=== PATIENT | female | born 1955 | race Caucasian/White ===

== ENCOUNTER → 2018-05-30 10:21 | Outpatient (CLI) | payer OTHER, SELFPAY ==
[2018-05-30 11:04] LABS: Hematocrit 41.5 % (36-46); Mean Corpuscular HGB Conc 33.7 % (30-36); Mean Corpuscular Hemoglobin 29.7 PG (26-34); Mean Corpuscular Volume 88.3 fL (80-100); Platelet Count 316 X10^3/uL (150-400); Red Cell Distribution Width 13.3 % (11.6-14.8); White Blood Cell Count 7.4 X10^3/uL (4.5-11.0)
[2018-05-30 11:05] LABS: Appearance Urine UA TURBID; Bilirubin Urine UA NEGATIVE (NEGATIVE); Color Urine UA YELLOW; Glucose Urine UA NEGATIVE (Negative); Ketones Urine UA TRACE (NEGATIVE); Leukocyte Esterase Urine UA NEGATIVE (NEGATIVE); Nitrite Urine UA NEGATIVE (Negative); Occult Blood Urine UA 1+ (Negative); Protein Urine UA NEGATIVE (Negative); Specific Gravity Urine UA 1.025 (1.000-1.035); Urobilinogen Urine UA 0.2 E.U./dL (0.2); pH Urine UA 5.5 (4.5-8.0)
[2018-05-30 11:36] LABS: Amorphous Sediment Urine 4+; Bacteria Urine Many (>30); RBC Urine 1-5/HPF (0-5/HPF); WBC Urine 0-1/HPF (0-5/HPF)
[2018-05-30 11:47] LABS: Alanine Aminotransferase 36 IU/L (9-52); Albumin 4.7 g/dL (3.5-5.0); Albumin Globulin Ratio 1.6 (1.0-2.8); Alkaline Phosphatase 67 U/L (38-126); Aspartate Aminotransferase 26 IU/L (14-36); BUN Creatinine Ratio 23.3 (6-22); Bilirubin Total 0.4 mg/dL (0.2-1.3); Blood Urea Nitrogen 21 mg/dL (7-17); Calcium 9.9 mg/dL (8.4-10.2); Carbon Dioxide 27 mmol/L (22-32); Chloride 102 mmol/L (98-107); Estimated Glomerular Filt Rate > 60.0 mL/min (>60); Globulin 2.9 g/dL (1.7-4.1); Glucose 99 mg/dL (80-110); HDL Cholesterol 56 mg/dL (40-60); HEMOLYSIS < 15 (0-50); Potassium 4.9 mmol/L (3.4-5.1); Sodium 139 mmol/L (137-145); Total Protein 7.6 g/dL (6.3-8.2); Triglycerides 292 mg/dL (35-150)
[2018-05-30 11:52] LABS: Cholesterol 347 mg/dL (140-199); LDL Cholesterol Calculated 233 mg/dL (<100)
== END ==
PROVIDERS: Visit Provider Nurse Practitioner Family
DX: Z00.00 Encounter for general adult medical examination without abnormal findings (principal)
CPT/HCPCS: 36415; 80053; 80061; 81001; 85027

== ENCOUNTER → 2018-09-05 09:49 | Outpatient (CLI) | payer OTHER, SELFPAY ==
[2018-09-05 11:31] LABS: Appearance Urine UA CLEAR; Bilirubin Urine UA NEGATIVE (NEGATIVE); Color Urine UA YELLOW; Glucose Urine UA NEGATIVE (Negative); Ketones Urine UA NEGATIVE (NEGATIVE); Leukocyte Esterase Urine UA NEGATIVE (NEGATIVE); Nitrite Urine UA NEGATIVE (Negative); Occult Blood Urine UA 1+ (Negative); Protein Urine UA NEGATIVE (Negative); Specific Gravity Urine UA 1.025 (1.000-1.035); Urobilinogen Urine UA 0.2 E.U./dL (0.2)
[2018-09-05 11:52] LABS: RBC Urine 5-10/HPF (0-5/HPF)
[2018-09-05 11:53] LABS: Bacteria Urine Few (2-10); Mucus Urine 1+ (Negative); WBC Urine 0-1/HPF (0-5/HPF)
[2018-09-07 17:04] LABS: Fecal Immunochemical Test NOT DETECTED (NOT DETECTED)
== END ==
PROVIDERS: PCP Nurse Practitioner Family; Visit Provider Nurse Practitioner Family
DX: R31.29 Other microscopic hematuria (principal); Z00.00 Encounter for general adult medical examination without abnormal findings
CPT/HCPCS: 81001; 82274

== ENCOUNTER → 2018-09-14 10:36 | Outpatient (CLI) | payer OTHER, SELFPAY ==
[2018-09-14 10:42] LABS: Bacteria Urine None Seen; WBC Urine None Seen (0-5/HPF)
[2018-09-14 11:13] LABS: Appearance Urine UA CLEAR; Bilirubin Urine UA NEGATIVE (NEGATIVE); Color Urine UA YELLOW; Glucose Urine UA NEGATIVE (Negative); Ketones Urine UA NEGATIVE (NEGATIVE); Leukocyte Esterase Urine UA NEGATIVE (NEGATIVE); Nitrite Urine UA NEGATIVE (Negative); Occult Blood Urine UA 1+ (Negative); Protein Urine UA NEGATIVE (Negative); Specific Gravity Urine UA 1.025 (1.000-1.035); Urobilinogen Urine UA 0.2 E.U./dL (0.2); pH Urine UA 5.5 (4.5-8.0)
[2018-09-14 11:31] LABS: Amorphous Sediment Urine 1+; RBC Urine 1-5/HPF (0-5/HPF)
[2018-09-14 12:21] LABS: HDL Cholesterol 61 mg/dL (40-60); Triglycerides 310 mg/dL (35-150)
[2018-09-14 12:51] LABS: Cholesterol 330 mg/dL (140-199); LDL Cholesterol Calculated 207 mg/dL (<100)
== END ==
PROVIDERS: PCP Nurse Practitioner Family; Visit Provider Nurse Practitioner Family
DX: R31.29 Other microscopic hematuria (principal); E78.9 Disorder of lipoprotein metabolism, unspecified; Z51.81 Encounter for therapeutic drug level monitoring
CPT/HCPCS: 36415; 80061; 81001

== ENCOUNTER → 2018-10-09 09:38 | Outpatient (CLI) | payer OTHER, SELFPAY ==
[2018-10-09 10:45] LABS: Cholesterol 237 mg/dL (140-199); HDL Cholesterol 46 mg/dL (40-60); LDL Cholesterol Calculated 138 mg/dL (<100); Triglycerides 265 mg/dL (35-150)
[2018-10-09 11:32] LABS: Estimated Glomerular Filt Rate > 60.0 mL/min (>60)
--- NOTE | 2018-10-09 12:43 | DI.CT.S_ITS ---
PROCEDURE: CT ABDOMEN PELVIS WO/W CON INDICATIONS: HEMATURIA TECHNIQUE: Optional 5 mm thick noncontrast images acquired from the diaphragm to the symphysis pubis. After the administration of intravenous contrast, 5 mm thick images acquired from the diaphragm to the symphysis pubis after a 10-minute delay. 2 mm thick coronal and sagittal reformats were then performed of the kidneys and ureters. For radiation dose reduction, the following was used: automated exposure control, adjustment of mA and/or kV according to patient size. COMPARISON: None. FINDINGS: Image quality: Excellent. Lung bases: Lung bases are clear. Heart size is normal. Small hiatal hernia. Urinary system: Both kidneys are normal in size, without hydronephrosis. Probable punctate nonobstructing calculus in the right kidney, (2/30). No perinephric fat stranding. There is normal bilateral renal enhancement. Renal calyces appear normal in morphology when filled with contrast. Opacified portions of both ureters demonstrate normal caliber without filling defect. Bladder wall thickness is normal. No calcified bladder stones. Other solid organs: Liver is normal in size and enhancement. Gallbladder is unremarkable. Biliary system is non dilated. Pancreas enhances normally. Spleen is normal in size and enhancement. No adrenal nodules. Peritoneum and bowel: Moderate sigmoid colon diverticulosis. Bowel loops demonstrate normal wall thickness and caliber. No free fluid or air. Nodes and vessels: No retroperitoneal or mesenteric adenopathy by size criteria. Aorta and inferior vena cava are normal in size. Abdominal wall: No ventral hernias. Pelvis: No pathologic free pelvic fluid. Small fat-containing right inguinal hernia. Bones: No suspicious bony lesions. No vertebral body compression fractures. IMPRESSION: 1. No renal or bladder mass demonstrated. No ureteral filling defect. 2. A punctate nonobstructing calculus in the right kidney. No hydronephrosis. Dictated by: Sushant Pollard M.D. on 10/09/2018 at 13:55 Approved by: Sushant Pollard M.D. on 10/09/2018 at 14:04
== END ==
PROVIDERS: PCP Nurse Practitioner Family; Visit Provider Student in an Organized Health Care Education/Training Program
DX: R31.9 Hematuria, unspecified (principal); N20.0 Calculus of kidney; E78.2 Mixed hyperlipidemia
CPT/HCPCS: 36415; 74178; 80061; 82565; Q9967

== ENCOUNTER → 2018-12-18 09:19 | Outpatient (CLI) | payer OTHER, SELFPAY ==
[2018-12-18 09:55] LABS: Hematocrit 41.9 % (36-46); Mean Corpuscular HGB Conc 33.5 % (30-36); Mean Corpuscular Volume 89.4 fL (80-100); Platelet Count 296 X10^3/uL (150-400); Red Blood Cell Count 4.68 X10^6/uL (4.0-5.2); Red Cell Distribution Width 12.6 % (11.6-14.8)
[2018-12-18 10:16] LABS: Alanine Aminotransferase 18 IU/L (9-52); Albumin 4.3 g/dL (3.5-5.0); Albumin Globulin Ratio 1.5 (1.0-2.8); Alkaline Phosphatase 70 U/L (38-126); Aspartate Aminotransferase 23 IU/L (14-36); Bilirubin Total 0.6 mg/dL (0.2-1.3); Blood Urea Nitrogen 24 mg/dL (7-17); Calcium 9.5 mg/dL (8.4-10.2); Carbon Dioxide 29 mmol/L (22-32); Chloride 104 mmol/L (98-107); Cholesterol 312 mg/dL (140-199); Estimated Glomerular Filt Rate > 60.0 mL/min (>60); Globulin 2.9 g/dL (1.7-4.1); Glucose 99 mg/dL (80-110); HDL Cholesterol 54 mg/dL (40-60); HEMOLYSIS < 15 (0-50); LDL Cholesterol Calculated 215 mg/dL (<100); Potassium 4.9 mmol/L (3.4-5.1); Sodium 140 mmol/L (137-145); Total Protein 7.2 g/dL (6.3-8.2); Triglycerides 217 mg/dL (35-150)
== END ==
PROVIDERS: PCP Nurse Practitioner Family; Visit Provider Nurse Practitioner Family
DX: Z00.00 Encounter for general adult medical examination without abnormal findings (principal); E78.2 Mixed hyperlipidemia
CPT/HCPCS: 36415; 80053; 80061; 85027

== ENCOUNTER → 2020-02-06 08:51 | Outpatient (CLI) | payer MEDICARE, SELFPAY ==
[2020-02-06 10:11] LABS: BUN Creatinine Ratio 23.5 (6-22); Blood Urea Nitrogen 23 mg/dL (7-17); Calcium 9.9 mg/dL (8.4-10.2); Carbon Dioxide 32 mmol/L (22-32); Chloride 105 mmol/L (98-107); Cholesterol 243 mg/dL (140-199); Estimated Glomerular Filt Rate 56.8 mL/min (>60); Glucose 104 mg/dL (80-110); HDL Cholesterol 49 mg/dL (40-60); HEMOLYSIS < 15 (0-50); LDL Cholesterol Calculated 148 mg/dL (<100); Potassium 4.2 mmol/L (3.4-5.1); Sodium 139 mmol/L (137-145); Triglycerides 231 mg/dL (35-150)
== END ==
PROVIDERS: PCP Nurse Practitioner Family; Referring Provider Nurse Practitioner Family; Visit Provider Nurse Practitioner Family
DX: R79.9 Abnormal finding of blood chemistry, unspecified (principal); E78.2 Mixed hyperlipidemia
CPT/HCPCS: 36415; 80048; 80061

== ENCOUNTER → 2020-02-12 11:30 | Outpatient (CLI) | payer MEDICARE, SELFPAY ==
--- NOTE | 2020-02-12 | DI.RAD.S_ITS ---
PROCEDURE: XR WRIST RT MIN 3V INDICATIONS: RT WRIST PAIN NO TRAUMA TECHNIQUE: 4 views of the wrist were acquired. COMPARISON: None. FINDINGS: Bones: No fractures or dislocations. No periosteal reaction. No osseous erosions. Mild degenerative change. No suspicious bony lesions. Scaphoid view: Intact. Soft tissues: No suspicious soft tissue calcifications. No radiopaque foreign body. IMPRESSION: Mild osteoarthritis of the wrist. Dictated by: Sushant Pollard M.D. on 02/12/2020 at 12:55 Approved by: Sushant Pollard M.D. on 02/12/2020 at 12:56
--- NOTE | 2020-02-12 11:34 | DI.RAD.S_ITS ---
PROCEDURE: XR KNEE LT 3V INDICATIONS: knee pain for 6 months, no injury TECHNIQUE: 3 views of the knee were acquired. COMPARISON: None. FINDINGS: Bones: No fractures or dislocations. No suspicious bony lesions. Mild osteophytosis most pronounced in the patellofemoral compartment. Soft tissues: No significant joint effusion. No suspicious soft tissue calcifications. IMPRESSION: Mild left knee osteoarthritis most pronounced in the patellofemoral compartment. Dictated by: Sushant Pollard M.D. on 02/12/2020 at 12:53 Approved by: Sushant Pollard M.D. on 02/12/2020 at 12:55
[2020-02-12 12:07] LABS: Hematocrit 39.8 % (36-46); Hemoglobin 13.4 g/dL (12.0-16.0); Mean Corpuscular HGB Conc 33.7 % (30-36); Mean Corpuscular Hemoglobin 30.2 PG (26-34); Mean Corpuscular Volume 89.5 fL (80-100); Platelet Count 271 X10^3/uL (150-400); Red Blood Cell Count 4.44 X10^6/uL (4.0-5.2); Red Cell Distribution Width 12.6 % (11.6-14.8); White Blood Cell Count 5.3 X10^3/uL (4.5-11.0)
[2020-02-12 12:27] LABS: Alanine Aminotransferase 24 IU/L (<35); Albumin 4.5 g/dL (3.5-5.0); Albumin Globulin Ratio 1.6 (1.0-2.8); Alkaline Phosphatase 70 U/L (38-126); Aspartate Aminotransferase 28 IU/L (14-36); BUN Creatinine Ratio 33.8 (6-22); Bilirubin Total 0.6 mg/dL (0.2-1.3); Blood Urea Nitrogen 24 mg/dL (7-17); C-Reactive Protein Quant 0.8 mg/dL (<1.0); Calcium 9.6 mg/dL (8.4-10.2); Carbon Dioxide 29 mmol/L (22-32); Chloride 104 mmol/L (98-107); Estimated Glomerular Filt Rate > 60.0 mL/min (>60); Globulin 2.9 g/dL (1.7-4.1); Glucose 100 mg/dL (80-110); HEMOLYSIS < 15 (0-50); Magnesium 2.4 mg/dL (1.6-2.3); Potassium 4.2 mmol/L (3.4-5.1); Sodium 138 mmol/L (137-145); Total Protein 7.4 g/dL (6.3-8.2)
[2020-02-12 12:29] LABS: Erythrocyte Sedimentation Rate 8 MM/HR (0-20)
[2020-02-12 13:35] LABS: TSH w/ Reflex to FT4 1.81 uIU/mL (0.47-4.68)
== END ==
PROVIDERS: PCP Nurse Practitioner Family; Referring Provider Nurse Practitioner Family; Visit Provider Nurse Practitioner Family
DX: M25.562 Pain in left knee (principal); R07.89 Other chest pain; R00.2 Palpitations; M25.50 Pain in unspecified joint; M25.531 Pain in right wrist
CPT/HCPCS: 36415; 73110; 73562; 80053; 83735; 84443; 85027; 85651; 86140

== ENCOUNTER → 2020-02-24 15:33 | Outpatient (CLI) | payer MEDICARE, SELFPAY ==
--- NOTE | 2020-03-21 11:57 | PM.CARDMON.1 ---
Adult Daycare Coordinator Report Referral & Results Date Patient Seen: 02/24/20 Requesting provider: Ant Crain Indication: Palpitations Duration of monitoring (days): 14 Diary information: There were 5 patient triggered events and 5 patient diary entry events. These events were all associated with (within 45 seconds) sinus rhythm, PVCs, and SVT as below. Data: Minimum heart rate identified was 54 beats per minute at 05:31 on 03/04/2020 Maximum sinus heart rate was 141 beats per minute at 09:48 on 03/06/2020 Maximum overall heart rate was 203 beats per minute at 15:12 on 03/08/2020 during a 7 beat run of SVT Less than 1% of identified beats or either ventricular supraventricular ectopic in origin Patient had 8 runs of SVT with the longest being 12.3 seconds at a rate of 121 beats per minute (which suggest atrial tachycardia rather than true SVT), and the fastest being the 7 beat run listed above Impression: Patient with essentially normal 14 day monitor and storage bin tender. Rare PACs and PVCs present. Difficult to correlate patient triggered events with specific dysrhythmias although could potentially be due to very brief runs of SVT as above. Clinical correlation suggested
== END ==
PROVIDERS: Family Provider Nurse Practitioner Family; PCP Nurse Practitioner Family; Referring Provider Nurse Practitioner Family; Visit Provider Nurse Practitioner Family
DX: R00.2 Palpitations (principal); R07.9 Chest pain, unspecified
CPT/HCPCS: 0296T; 0298T

== ENCOUNTER → 2020-03-09 13:34 | Outpatient (CLI) | payer MEDICARE, SELFPAY ==
--- NOTE | 2020-03-09 13:36 | DI.ECHO.S_ITS ---
[place] [facility]+ [facility] +---------+ : : [address] : : : : [id number] : : : : Phone: [phone] Echocardiogram Report + + :Name: DEE DEE CHAVEZ Study Date: 03/09/2020 Height: 64 in : :[facility] Weight: 120 lb : : Gender: Female BSA: 1.6 m2 : :: 1955 Age: 65 yrs BP: 119/71 mmHg: :Reason For Study: CHEST PAIN, PALPITATIONS : : Performed By: Rosita Tapia : :Referring: KYLIE KU : + + Interpretation Summary The left ventricle is normal in size and wall thickness. Left ventricular systolic function appears normal without focal wall motion abnormalities. The ejection fraction is estimated to be 55-60%. Diastolic parameters suggest probable normal left ventricular diastolic function and normal filling pressures. The right ventricle is normal in size and function. The right ventricular systolic pressure is estimated to be at least 17 mmHg based on an estimated right atrial pressure of 3 mm Hg. The left atrial size is normal. Right atrial size is normal. There is no significant valvular heart disease. The aortic root is normal size. Procedure: A two-dimensional transthoracic echocardiogram with color flow and Doppler was performed. The study quality was technically adequate. There is no prior echocardiogram noted for this patient. The patient was in sinus rhythm with heart rates between 60-68 bpm during the exam. Left Ventricle: The left ventricle is normal in size and wall thickness. Left ventricular systolic function appears normal without focal wall motion abnormalities. The ejection fraction is estimated to be 55-60%. Diastolic parameters suggest probable normal left ventricular diastolic function and normal filling pressures. Right Ventricle: The right ventricle is normal in size and function. Atria: The left atrial size is normal. Right atrial size is normal. There is no Doppler evidence for an interatrial shunt. Mitral Valve: The mitral valve is normal in structure and function. There is trace mitral regurgitation. Aortic Valve: The aortic valve is trileaflet. The aortic valve opens well. There is no aortic valve stenosis. No aortic regurgitation is present. Tricuspid Valve: The tricuspid valve is normal in structure and function. There is mild tricuspid regurgitation. The right ventricular systolic pressure is estimated to be at least 17 mmHg based on an estimated right atrial pressure of 3 mm Hg. Pulmonic Valve: The pulmonic valve leaflets are thin and pliable; valve motion is normal. There is no pulmonic valvular regurgitation. There is no significant valvular heart disease. Great Vessels: The aortic root is normal size. The dimensions of the ascending aorta are normal. The IVC is of normal diameter and collapses greater than 50% with a sniff. This suggests a low right atrial pressure of 3 mm Hg. Pericardium/ Pleura There is no pericardial effusion. There is no pleural effusion. MMode/2D Measurements & Calculations LVIDd: 4.3 cm LVOT diam: 2.0 cm LVIDs: 2.7 cm Ao root diam: 2.7 cm FS: 36.0 % asc Aorta Diam: 2.7 cm EPSS: 0.40 cm Ao Arch Diam (Prox Trans): 2.2 cm IVSd: 0.89 cm LVPWd: 0.81 cm LV gann. diameter/BSA (cm/m^2): 2.7 LV sys. diameter/BSA (cm/m^2): 1.7 LA A2 area: 14.7 cm2 RA long axis: 4.0 cm LA A4 area: 13.1 cm2 RA area: 12.4 cm2 LA length (vol): 3.8 cm RA vol: 33.2 ml LA vol: 42.9 ml RA : 21.1 ml/m2 LA vol index: 27.2 ml/m2 IVC diam: 0.91 cm RVD1 (basal): 3.3 cm TAPSE: 1.9 cm Doppler Measurements & Calculations Ao V2 max: 104.2 cm/sec LVOT Max Francisco J: 86.8 cm/sec Ao V2 mean: 71.6 cm/sec LV V1 max P.0 mmHg Ao max P.3 mmHg LV V1 VTI: 19.2 cm Ao mean P.3 mmHg SUE(I,D): 2.7 cm2 Ao V2 VTI: 21.8 cm SUE(V,D): 2.6 cm2 sev ratio: 0.88 SUE indexed to BSA (cm^2/m^2): 1.7 MV E max francisco j: 78.2 cm/sec TR max francisco j: 187.3 cm/sec MV A max francisco j: 71.5 cm/sec TR max P.2 mmHg MV E/A: 1.1 PA V2 max: 76.4 cm/sec Med Peak E' Francisco J: 7.2 cm/sec PA V2 mean: 47.9 cm/sec E/E' med: 10.8 PA mean P.1 mmHg Lat Peak E' Francisco J: 7.9 cm/sec PA pr(Accel): 5.4 mmHg E/E' lat: 9.9 E/e' average: 10.3 MV dec time: 0.22 sec SV(VIJAY): 59.2 ml Reading Physician:07:27 PM
== END ==
PROVIDERS: Family Provider Nurse Practitioner Family; PCP Nurse Practitioner Family; Referring Provider Nurse Practitioner Family; Visit Provider Nurse Practitioner Family
DX: I07.1 Rheumatic tricuspid insufficiency (principal); R07.89 Other chest pain; R00.2 Palpitations
CPT/HCPCS: 93306

== ENCOUNTER → 2022-01-18 14:17 | Outpatient (CLI) | payer OTHER, SELFPAY ==
--- NOTE | 2022-01-18 14:22 | DI.RAD.S_ITS ---
PROCEDURE: XR WRIST RT MIN 3V INDICATIONS: screen TECHNIQUE: 3 views of the wrist were acquired. COMPARISON: [facility], CR, XR WRIST RT MIN 3V, 02/12/2020, 10:59. FINDINGS: Bones: No fractures or dislocations. No suspicious bony lesions. Degenerative radiocarpal narrowing is present. Soft tissues: No suspicious soft tissue calcifications. IMPRESSION: No visualized acute fracture or dislocation. However, if clinical concern and/or pain persist, short interval imaging followup in 7-10 days is recommended, as occult injury cannot be definitively excluded. Dictated by: Maryan Wayne M.D. on 01/18/2022 at 16:53 Approved by: Maryan Wayne M.D. on 01/18/2022 at 16:53
== END ==
PROVIDERS: Family Provider Nurse Practitioner Family; PCP Internal Medicine; Referring Provider Nurse Practitioner Family; Visit Provider Nurse Practitioner Family
DX: M81.0 Age-related osteoporosis without current pathological fracture (principal); Z78.0 Asymptomatic menopausal state; M85.89 Other specified disorders of bone density and structure, multiple sites
CPT/HCPCS: 73110; 77080

== ENCOUNTER → 2023-09-25 14:46 | Outpatient (CLI) | payer MEDICARE, SELFPAY ==
--- NOTE | 2023-09-25 14:48 | DI.RAD.S_ITS ---
PROCEDURE: XR LUMBAR SPINE 2-3V INDICATIONS: Low back pain TECHNIQUE: Three views of the lumbar spine were acquired. COMPARISON: None. FINDINGS: Bones: Five [id number] vertebrae are present. Grade 1 retrolisthesis L2-3 and L3-4. Grade 1 anterolisthesis L4-5 and trace anterolisthesis L5-S1. Moderate disc height loss L2-3 and L4-5. Mild disc height loss at other levels. There is prominent facet arthropathy L5-S1. No vertebral body compression fractures. No suspicious bony lesions. Soft tissues: Overlying bowel gas pattern is normal. No suspicious soft tissue calcifications. IMPRESSION: Spondylosis and spondylolisthesis with both most prominent at L4-5. Dictated by: Va Yao M.D. on 09/25/2023 at 23:10 Approved by: Va Yao M.D. on 09/25/2023 at 23:14
--- NOTE | 2023-09-25 14:48 | DI.RAD.S_ITS ---
PROCEDURE: XR HIP W PEL IF DONE RT 2V INDICATIONS: Right hip pain TECHNIQUE: AP pelvis with lateral view(s) of the right hip(s). COMPARISON: None. FINDINGS: Bones: Normal mineralization. No acute fractures or malalignment. There is chronic appearing moderate to severe bilateral femoroacetabular joint space loss superiorly with acetabular sclerosis, spurring, and subcortical cystic changes on both sides of the joint space. There is femoral head spurring. On the right. Femoral heads remains spherical. Other joints are normally aligned. Soft tissues: The visualized bowel gas pattern is normal. No suspicious soft tissue calcifications. 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 Dictated by: Va Yao M.D. on 09/25/2023 at 23:14 Approved by: Va Yao M.D. on 09/25/2023 at 23:15
== END ==
PROVIDERS: PCP Internal Medicine; Referring Provider Nurse Practitioner Family; Visit Provider Nurse Practitioner Family
DX: M47.816 Spondylosis without myelopathy or radiculopathy, lumbar region (principal); M43.16 Spondylolisthesis, lumbar region; M54.50 Low back pain, unspecified; M25.551 Pain in right hip
CPT/HCPCS: 72100; 73502

== ENCOUNTER → 2023-12-08 09:16 | Outpatient (CLI) | payer MEDICARE, SELFPAY ==
--- NOTE | 2023-12-08 09:17 | DI.MRI.S_ITS ---
PROCEDURE: MR LUMBAR SPINE WO CON INDICATIONS: RADICULOPATHY,LUMBAR REGION TECHNIQUE: Noncontrast sagittal T1 spin echo and T2 fast echo, sagittal STIR, and T2 fast spin echo through the lumbar spine. In cases with scoliosis, additional coronal T2 fast spin echo may be performed. COMPARISON: None. FINDINGS: Mild levoscoliosis of lumbar spine, centered at L3-4. Mild retrolisthesis of L2 on L3. Grade 1 anterolisthesis of L4 on L5. Vertebral body heights are well maintained. Small vertebral hemangioma in the posterior L2 vertebral body. Multilevel disc bulge and disc desiccation. Conus terminates at the level of L1-2, and is unremarkable. Right neural foraminal stenosis: Mild at L2-3, L3-4. Left neural foraminal stenosis: Mild at L2-3, L5-S1. Axial images: T12-L1: No central canal stenosis. L1-2: No central canal stenosis. L3-3: Disc bulge. No central canal stenosis. L3-4: Disc bulge. Ligamentum flavum hypertrophy. No central canal stenosis. L4-5: Posterior disc uncovering. Severe right, moderate left facet arthropathy. Mild central canal stenosis. L5-S1: Mild bilateral facet arthropathy. No central canal stenosis. Visualized sacrum is unremarkable. No abdominal aortic aneurysm. Small right and small left renal cyst. IMPRESSION: 1. Multilevel degenerative changes of the lumbar spine, most pronounced at L4-5, where there is mild central canal stenosis . 2. Additional multilevel mild neural foraminal stenosis as described above. Dictated by: Rica Sandoval M.D. on 12/08/2023 at 14:40 Approved by: Rica Sandoval M.D. on 12/08/2023 at 14:49
== END ==
LOC: MRI 09:16
PROVIDERS: PCP Internal Medicine; Referring Provider Physical Medicine & Rehabilitation; Visit Provider Physical Medicine & Rehabilitation
DX: M47.26 Other spondylosis with radiculopathy, lumbar region (principal); M47.27 Other spondylosis with radiculopathy, lumbosacral region; M48.061 Spinal stenosis, lumbar region without neurogenic claudication; M48.07 Spinal stenosis, lumbosacral region
CPT/HCPCS: 72148